=== PATIENT | male | born 1955 | race Caucasian/White ===

== ENCOUNTER 2017-01-13 09:29 | Emergency (ER) | payer MEDICARE ==
[2017-01-13 09:41] VITALS: BP 128/78
--- NOTE | 2017-01-13 09:48 | UC ---
Knee Pain HPI - HPI Summary HPI Summary: 61 YEAR OLD MALE PRESENTS WITH LEFT KNEE PAIN. - History of Current Complaint Chief Complaint: UCLowerExtremity Stated Complaint: LEFT KNEE PAIN Time Seen by Provider: 01/13/17 09:44 - Allergies/Home Medications Allergies/Adverse Reactions: Allergies Allergy/AdvReac Type Severity Reaction Status Date / Time Molds & Smuts Allergy Shortness Verified 01/13/17 09:37 of Breath dog hair Allergy Shortness Uncoded 01/13/17 09:37 of Breath Home Medications: Home Medications Aspirin EC Low Dose* [Ecotrin EC Low Dose 81 MG*] 81 mg PO DAILY 01/13/17 [ History Confirmed 01/13/17] PMH/Surg Hx/FS Hx/Imm Hx - Surgical History Surgical History: Yes Surgery Procedure, Year, and Place: Right Knee Medial Meniscus, 2006, [facility] [place] - Family History Known Family History: Negative: Respiratory Disease, Blood Disorder - Social History Alcohol Use: None Substance Use Type: None Smoking Status (MU): Never Smoked Tobacco Review of Systems Constitutional: Negative Skin: Negative Eyes: Negative ENT: Negative Respiratory: Negative Cardiovascular: Negative Gastrointestinal: Negative Genitourinary: Negative Motor: Negative Neurovascular: Negative Musculoskeletal: Other: - LEFT MEDIAL KNEE PAIN Neurological: Negative Psychological: Negative All Other Systems Reviewed And Are Negative: Yes Physical Exam Triage Information Reviewed: Yes Vital Signs: Initial Vital Signs Temp 36.8 C 01/13/17 09:33 Pulse 73 01/13/17 09:33 Resp 16 01/13/17 09:33 BP 128/78 01/13/17 09:33 Pulse Ox 97 01/13/17 09:33 Eye Exam: Normal ENT Exam: Normal Dental Exam: Normal Neck exam: Normal Neck: Positive: 1 Respiratory Exam: Normal Cardiovascular Exam: Normal Abdominal Exam: Normal Musculoskeletal: Positive: Strength Limited @, ROM Limited @, Other: - LEFT KNEE PAIN Neurological Exam: Normal Psychological Exam: Normal Skin Exam: Normal Knee Pain Course/Dx - Differential Dx/Diagnosis Provider Diagnoses: LEFT MEDIAL COMPARTMENT KNEE PAIN Discharge - Discharge Plan Condition: Stable Disposition: HOME Prescriptions: Methylprednisolone [Medrol Dosepak 4 MG*] 4 mg PO .SEE JAYSHREE INSTRUCTION #21 tab Patient Education Materials: Knee Pain (ED) Referrals: GADIEL Raymundo [Primary Care Provider] -
--- NOTE | 2017-01-13 10:24 | RAD ---
INDICATION: Chronic, atraumatic left knee pain COMPARISON: Left knee May 03, 2006 TECHNIQUE: AP, lateral, tunnel, and sunrise views were obtained. FINDINGS: There is moderate to advanced tricompartmental osteoarthritis with spurring about all 3 joint space compartments and moderate narrowing about the medial joint space compartment. There are findings of chondrocalcinosis. There is no significant joint effusion. IMPRESSION: MODERATE TO ADVANCED OSTEOARTHRITIS PROGRESSIVE FROM 2005
== END 2017-01-13 10:44 | disposition home or self-care (01) ==
LOC: UCCORT 09:29
DX: M25.562 Pain in left knee (principal); M17.12 Unilateral primary osteoarthritis, left knee; Z79.82 Long term (current) use of aspirin
CPT/HCPCS: 99212; G0463

== ENCOUNTER 2017-05-03 11:06 | Emergency (ER) | payer MEDICARE ==
[2017-05-03 11:20] VITALS: BP 132/95
--- NOTE | 2017-05-03 11:37 | UC ---
Back Pain HPI - HPI Summary HPI Summary: left flank pain x 1 week no known injury pain is at the left flank radiates to the left side of chest no cough , no sob , no fever or chills pain is worse with breathing or coughing - History of Current Complaint Chief Complaint: UCBackPain Stated Complaint: MIDDLE BACK/LEFT SIDE/LEFT SHOULDER PAIN Time Seen by Provider: 05/03/17 11:10 Hx Obtained From: Patient Onset/Duration: Gradual Onset, Lasting Weeks - 7, Still Present Timing: Constant Severity Initially: Moderate Severity Currently: Moderate Back Pain: Is Discrete @ - left flank Character: Aching Aggravating Factor(s): Movement, Other - cough , deep breathing Alleviating Factor(s): Rest Associated Signs And Symptoms: Positive: Flank Pain - left. Negative: Swelling , Redness, Bruising, Fever, Weakness, Numbness, Tingling, Abdominal Pain - Allergies/Home Medications Allergies/Adverse Reactions: Allergies Allergy/AdvReac Type Severity Reaction Status Date / Time Molds & Smuts Allergy Shortness Verified 01/13/17 09:37 of Breath dog hair Allergy Shortness Uncoded 01/13/17 09:37 of Breath PMH/Surg Hx/FS Hx/Imm Hx Respiratory History: Asthma - Surgical History Surgical History: Yes Surgery Procedure, Year, and Place: Right Knee Medial Meniscus, 2007, [facility]. L elbow - Family History Known Family History: Negative: Respiratory Disease, Blood Disorder - Social History Alcohol Use: None Substance Use Type: None Smoking Status (MU): Never Smoked Tobacco Review of Systems Constitutional: Negative Skin: Negative Eyes: Negative ENT: Negative Respiratory: Negative Is Patient Immunocompromised?: No All Other Systems Reviewed And Are Negative: Yes Physical Exam Triage Information Reviewed: Yes Appearance: Well-Appearing, No Pain Distress, Well-Nourished Vital Signs: Initial Vital Signs Temp 97.8 F 05/03/17 11:10 Pulse 76 05/03/17 11:10 Resp 16 05/03/17 11:10 BP 132/95 05/03/17 11:10 Pulse Ox 98 05/03/17 11:10 Vital Signs Reviewed: Yes Eyes: Positive: Conjunctiva Clear ENT: Positive: Normal ENT inspection, Hearing grossly normal, Pharynx normal Neck exam: Normal Neck: Positive: Supple, Nontender, No Lymphadenopathy Respiratory: Positive: Chest non-tender, Lungs clear, Normal breath sounds Cardiovascular: Positive: RRR, No Murmur, Pulses Normal Abdominal Exam: Normal Abdomen Description: Positive: Soft Bowel Sounds: Positive: Present Musculoskeletal: Positive: Other: - tenderness left mid ribs, Skin Exam: Normal Back Pain Course/Dx - Differential Dx/Diagnosis Provider Diagnoses: intercostal muscle strain Discharge - Discharge Plan Condition: Stable Disposition: HOME Prescriptions: Cyclobenzaprine TAB* [Flexeril 10 MG TAB*] 10 mg PO BID #20 tab Naproxen [Naproxen 500 mg] 500 mg PO BID #20 tab Patient Education Materials: Chest Wall Pain (ED) Referrals: GADIEL Raymundo [Primary Care Provider] - 7 Days
== END 2017-05-03 11:38 | disposition home or self-care (01) ==
LOC: UCCORT 11:06
DX: S29.011A Strain of muscle and tendon of front wall of thorax, initial encounter (principal); J30.89 Other allergic rhinitis; J30.81 Allergic rhinitis due to animal (cat) (dog) hair and dander; X58.XXXA Exposure to other specified factors, initial encounter
CPT/HCPCS: 99212; G0463

== ENCOUNTER 2018-04-05 16:11 | Emergency (ER) | payer MEDICARE ==
[2018-04-05 16:24] VITALS: BP 132/82
--- NOTE | 2018-04-05 17:20 | UC ---
Neck Pain HPI - HPI Summary HPI Summary: 2 day history of left arm pain at deltoid insertion, with hx of chronic neck pain and restriction following an old injury (heavy carton of books fell with resulting strain in neck when he caught them.) Has not done PT in some time, but he is very active, and has recently been renovating his house x months. No hand paresthesias or weakness. Used OTC aleve x 1 dose only, no ice, heat or stretching. - History of Current Complaint Chief Complaint: UCGeneralIllness Stated Complaint: LEFT NECK/ARM/LEG PAIN Time Seen by Provider: 04/05/18 17:07 Hx Obtained From: Patient Onset/Duration Of Injury/Symptoms: Days - 3 Onset/Duration: Gradual Onset, Lasting Days Severity: Moderate Pain Intensity: 4 Character: Dull, Aching Aggravating Factors: Position, Movement Alleviating Factors: Nothing - Risk Factors Meningitis Risk Factors: Negative - Allergies/Home Medications Allergies/Adverse Reactions: Allergies Allergy/AdvReac Type Severity Reaction Status Date / Time No Known Allergies Allergy Verified 04/05/18 16:16 PMH/Surg Hx/FS Hx/Imm Hx - Additional Past Medical History Additional PMH: chronic neck pain Previously Healthy: Yes - Surgical History Surgical History: Yes Surgery Procedure, Year, and Place: Right Knee Medial Meniscus, 2007, [facility]. L elbow - Family History Known Family History: Positive: Cardiac Disease - sister, Diabetes - father, Respiratory Disease, Blood Disorder - Social History Occupation: Employed Full-time Lives: With Family Alcohol Use: None Substance Use Type: None Smoking Status (MU): Never Smoked Tobacco - Immunization History Most Recent Tetanus Shot: utd Review Of Systems Constitutional: Positive: Negative Skin: Positive: Negative Musculoskeletal: Positive: Arthralgia, Myalgia All Other Systems Reviewed And Are Negative: Yes Physical Exam Triage Information Reviewed: Yes Appearance: Well-Appearing, Pain Distress - mild Vital Signs: Initial Vital Signs Temp 98.1 F 04/05/18 16:17 Pulse 79 04/05/18 16:17 Resp 16 04/05/18 16:17 BP 132/82 04/05/18 16:17 Pulse Ox 98 04/05/18 16:17 Eyes: Positive: Conjunctiva Clear ENT: Positive: Pharynx normal Neck exam: Other - tight paraspinal muscles with marked decrease rom of neck: FF to 20 degrees, extension to neutral, rotation to 30 degrees. Neck: Positive: No Lymphadenopathy Respiratory: Positive: Lungs clear, Normal breath sounds Cardiovascular: Positive: RRR, No Murmur Musculoskeletal Exam: Other - mild tenderness anterior shoulder, tenderness at insertion at deltoid. Musculoskeletal: Positive: Strength Intact, ROM Limited @ - mild restriction of left shoulder range. Good resisted strength--deltoid, biceps. Neurological: Positive: Alert, Muscle Tone Normal, Fatigued Psychological Exam: Normal, Other - bilateral triceps and biceps reflexes symmetrical and normal. Skin Exam: Normal Neck Pain Course/Dx - Course Course Of Treatment: cervicalgia, left deltoid strain. - Differential Dx/Diagnosis Differential Dx/HQI/PQRI: Arthritis, Sprain, Strain Provider Diagnoses: strain left deltoid; cervicalgia (chronic) Discharge - Sign-Out/Discharge Documenting (check all that apply): Patient Departure All imaging exams completed and their final reports reviewed: No Studies - Discharge Plan Condition: Stable Disposition: HOME Prescriptions: Naproxen [Naproxen 500 mg tab] 500 mg PO BID PRN #40 tablet PRN Reason: Pain Patient Education Materials: Cervical Strain (ED), Muscle Strain (ED) Referrals: No Primary Care Phys,NOPCP [Primary Care Provider] - Additional Instructions: Begin naproxen 500mg twice daily for pain, taking it for about a week. Ensure that you take it with food and stop if you develop nausea or stomach upset. You have a referral to physical therapy to work on exercises to relieve strain and improve neck movement. - Billing Disposition and Condition Condition: STABLE Disposition: Home
== END 2018-04-05 17:47 | disposition home or self-care (01) ==
LOC: UCCORT 16:11
DX: S46.912A Strain of unspecified muscle, fascia and tendon at shoulder and upper arm level, left arm, initial encounter (principal); X50.0XXA Overexertion from strenuous movement or load, initial encounter; Y93.89 Activity, other specified; Y92.009 Unspecified place in unspecified non-institutional (private) residence as the place of occurrence of the external cause; M54.2 Cervicalgia
CPT/HCPCS: 99212; G0463

== ENCOUNTER 2018-10-01 07:51 | Emergency (ER) | payer MEDICARE ==
[2018-10-01 08:14] VITALS: BP 125/93
--- NOTE | 2018-10-01 08:18 | UC ---
FLU HPI - HPI Summary HPI Summary: 63-year-old male presents with onset of fever, chills, malaise, body aches, nasal congestion, sore throat, and occasionally productive cough for days ago. Denies ear pain, dysphagia, chest pain, shortness of breath, abdominal pain, nausea, vomiting, or diarrhea. - History of Current Complaint Chief Complaint: UCRespiratory Stated Complaint: SORE THROAT, ACHES Hx Obtained From: Patient Pain Intensity: 3 - Allergy/Home Medications Allergies/Adverse Reactions: Allergies Allergy/AdvReac Type Severity Reaction Status Date / Time No Known Allergies Allergy Verified 10/01/18 08:11 Home Medications: Home Medications Dm/PE/Acetaminophen/Doxylamine [COLD & FLU MULTI-SYMPTOM (Liquid)] 1 mis PO BID PRN 10/01/18 [History Confirmed 10/01/18] PMH/Surg Hx/FS Hx/Imm Hx Previously Healthy: Yes - Denies significant PMH - Surgical History Surgical History: Yes Surgery Procedure, Year, and Place: Right Knee Medial Meniscus, 2006, [facility]. L elbow - Family History Known Family History: Positive: Cardiac Disease - sister, Diabetes - father, Respiratory Disease, Blood Disorder - Social History Occupation: Disabled Lives: With Family Alcohol Use: None Substance Use Type: None Smoking Status (MU): Never Smoked Tobacco - Immunization History Most Recent Tetanus Shot: utd Review of Systems All Other Systems Reviewed And Are Negative: Yes Constitutional: Positive: Fever, Chills Skin: Negative: Rash Eyes: Negative: Drainage, Eye Redness ENT: Positive: Sore Throat, Nasal Discharge, Sinus Congestion. Negative: Ear Ache, Sinus Pain/Tenderness Respiratory: Positive: Cough. Negative: Shortness Of Breath Cardiovascular: Negative: Palpitations, Chest Pain Gastrointestinal: Negative: Abdominal Pain, Vomiting, Diarrhea, Nausea Genitourinary: Positive: Negative Musculoskeletal: Positive: Myalgia Neurological: Positive: Negative Is Patient Immunocompromised?: No Physical Exam - Summary Physical Exam Summary: GENERAL APPEARANCE: Well developed, well nourished, alert and cooperative, and appears to be in no acute distress. EYES: Conjunctiva clear. No drainage. Vision is grossly intact. EARS: External auditory canals and tympanic membranes clear, hearing grossly intact. NOSE: Mild-moderate. nasal congestion. No nasal discharge. THROAT: Pharyngeal erythema with cobblestoning. No tonsilar inflammation, swelling, exudate, or lesions. Uvula midline. Oral cavity normal. Teeth and gingiva in good general condition. NECK: Neck supple, non-tender without lymphadenopathy. CARDIAC: Grade II systolic murmur. Rhythm is regular. There is no peripheral edema, cyanosis or pallor. Extremities are warm and well perfused. Capillary refill is less than 2 seconds. Peripheral pulses intact. LUNGS: Clear to auscultation without rales, rhonchi, wheezing or diminished breath sounds. Loose non-productive cough. ABDOMEN: Positive bowel sounds. Soft, nondistended, nontender. No guarding or rebound. No masses or hepatosplenomegally. MUSKULOSKELETAL: ROM intact to all extremities. No joint erythema or tenderness. Normal muscular development. Normal gait. SKIN: Skin normal color, texture and turgor with no lesions or eruptions. Triage Information Reviewed: Yes Vital Signs: Initial Vital Signs Temp 98.1 F 10/01/18 08:12 Pulse 93 10/01/18 08:12 Resp 16 10/01/18 08:12 BP 125/93 10/01/18 08:12 Pulse Ox 98 10/01/18 08:12 Vital Signs Reviewed: Yes Flu Course/Dx - Course Course Of Treatment: 63-year-old male presents with onset of fever, chills, malaise, body aches, nasal congestion, sore throat, and occasionally productive cough for days ago. Denies ear pain, dysphagia, chest pain, shortness of breath, abdominal pain, nausea, vomiting, or diarrhea. Afebrile. Vital signs stable. Exam remarkable for mild to moderate nasal congestion, pharyngeal erythema with cobblestoning, and a loose nonproductive cough. Patient's history and exam are consistent with influenza versus viral URI. Will recommend symptomatic treatment at this time. Patient is to follow-up with his primary care provider in 5-7 days if symptoms persist. Anticipatory guidance and warning symptoms were reviewed with the patient. Verbalizes understanding and agrees with plan of care. - Differential Dx/Diagnosis Differential Diagnosis/HQI/PQRI: Bronchitis, Influenza, Pneumonia, Upper Respiratory Infection Provider Diagnosis: Influenza Discharge - Sign-Out/Discharge Documenting (check all that apply): Patient Departure All imaging exams completed and their final reports reviewed: No Studies - Discharge Plan Condition: Stable Disposition: HOME Prescriptions: Benzonatate CAP* [Tessalon 100 MG CAP*] 100 mg PO TID PRN #30 cap PRN Reason: Cough Patient Education Materials: Influenza (ED) Referrals: GADIEL Raymundo [Primary Care Provider] - 5 Days (Follow up in 5-7 days if symptoms persist.) Additional Instructions: Your history and exam are consistent with influenza or other viral infection. Get plenty of rest. Drink plenty of fluids to avoid dehydration especially if you are running any fever. Take over the counter acetaminophen (Tylenol) or ibuprofen (Advil, Motrin) according to directions as needed for pain or fever. Take Tessalon Perles 1 cap every 8 hours as needed for cough. Use salt water gargles several times a day if you have a sore throat. You may also use Chloraseptic spray or Cepacol lonzenges according to directions which contain a numbing medication and can provide some temporary relief from your sore throat. Follow up with your primary care provider in 5-7 days if symptoms persist. Seek immediate medical attention in the emergency room if you have fever greater than 100.5 F despite taking acetaminophen or ibuprofen, have chest pain , difficulty breathing, are unable to swallow, or have any worsening of symptoms. - Billing Disposition and Condition Condition: STABLE Disposition: Home
== END 2018-10-01 08:30 | disposition home or self-care (01) ==
LOC: UCCORT 07:51
DX: J11.1 Influenza due to unidentified influenza virus with other respiratory manifestations (principal)
CPT/HCPCS: 99212; G0463

== ENCOUNTER 2018-11-04 15:46 | Emergency (ER) | payer MEDICARE ==
[2018-11-04 16:14] VITALS: BP 134/69
--- NOTE | 2018-11-04 16:32 | UC ---
Dizzy HPI HPI Summary: Pt presents with c/o sudden onset of lightheadedness while at the store just prior to arrival. Pt denies, ROSARIO, palpitations, cp one sided weakness or LOC. Pt states that he feels fine now but is concerned about "event" at store. He said he felt "confused", weak and slightly lightheaded. - History Of Current Complaint Stated Complaint: LIGHT-HEADEDNESS Time Seen by Provider: 11/04/18 15:59 Hx Obtained From: Patient Onset/Duration: Sudden Onset, Other - seconds Timing: Seconds Severity Initially: Mild Severity Currently: None Pain Intensity: 1 Character: Lightheaded, Unable To Describe - confused Aggravating Factor(s): Nothing Alleviating Factor(s): Other - resloved on own Associated Signs And Symptoms: Positive: Negative - Risk Factors Cardiac Risk Factors: Negative CVA Risk Factor: Negative - Allergies/Home Medications Allergies/Adverse Reactions: Allergies Allergy/AdvReac Type Severity Reaction Status Date / Time dog dander Allergy Unknown Shortness Verified 11/04/18 15:57 of Breath PMH/Surg Hx/FS Hx/Imm Hx Previously Healthy: Yes Cardiovascular History: Cardiac Disease, Other - murmur - Surgical History Surgical History: Yes Surgery Procedure, Year, and Place: Right Knee Medial Meniscus, 2006, [facility]. L elbow - Family History Known Family History: Positive: Cardiac Disease - sister, Diabetes - father, Respiratory Disease, Blood Disorder - Social History Occupation: Retired Alcohol Use: None Substance Use Type: None Smoking Status (MU): Never Smoked Tobacco Have You Smoked in the Last Year: No - Immunization History Most Recent Tetanus Shot: utd Vaccination Up to Date: No Review of Systems All Other Systems Reviewed And Are Negative: Yes Constitutional: Positive: Negative Skin: Positive: Negative Eyes: Positive: Negative ENT: Positive: Negative Respiratory: Positive: Negative Cardiovascular: Positive: Negative Gastrointestinal: Positive: Negative Genitourinary: Positive: Negative Motor: Positive: Negative Neurovascular: Positive: Negative Musculoskeletal: Positive: Negative Neurological: Positive: Negative Psychological: Positive: Negative Is Patient Immunocompromised?: No Physical Exam Triage Information Reviewed: Yes Appearance: Well-Appearing Vital Signs: Initial Vital Signs Temp 97.8 F 11/04/18 15:59 Pulse 78 11/04/18 15:59 Resp 18 11/04/18 15:59 BP 134/69 11/04/18 15:59 Pulse Ox 98 11/04/18 15:59 Vital Signs Reviewed: Yes Eye Exam: Normal ENT Exam: Normal Dental Exam: Normal Neck exam: Normal Respiratory Exam: Normal Cardiovascular: Positive: Murmur:Sys:Grade _?_/ Musculoskeletal Exam: Normal Neurological Exam: Normal Neurological: Positive: Alert, Muscle Tone Normal Psychological Exam: Normal Psychological: Positive: Normal Response To Family Skin Exam: Normal Dizzy Course/Dx - Differential Dx/Diagnosis Differential Diagnosis/HQI/PQRI: Transient Ischemic Attack, Vasovagal Reaction Provider Diagnosis: Light-headed feeling Discharge - Sign-Out/Discharge Documenting (check all that apply): Patient Departure All imaging exams completed and their final reports reviewed: No Studies - Discharge Plan Condition: Stable Disposition: HOME Patient Education Materials: Meal Planning with Diabetes Exchanges (DC), Lightheadedness (ED), Dizziness (ED) Referrals: GADIEL Raymundo [Primary Care Provider] - As Soon As Possible Additional Instructions: Please follow up with your PCP as soon as possible. - Billing Disposition and Condition Condition: STABLE Disposition: Home
== END 2018-11-04 16:45 | disposition home or self-care (01) ==
LOC: UCCORT 15:46
DX: R42 Dizziness and giddiness (principal); R01.1 Cardiac murmur, unspecified
CPT/HCPCS: 93005; 99211; G0463

== ENCOUNTER 2018-12-10 18:04 | Emergency (ER) | payer MEDICARE ==
--- OUTSIDE RECORDS SUMMARY | 2018-12-10 18:16 | XMS REPORT | Continuity of Care Document ---
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 Onset: 09/18/2013 Family history of malignant neoplasm German Ruff M.D. 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 Independent with all ADL's Tobacco Use Start: Unknown Never Smoked Cigarettes ETOH Use Denies alcohol use Tobacco Use Start: Unknown Patient has never smoked Smoking Status Reviewed: 11/28/18 Patient has never smoked Allergies, Adverse Reactions, Alerts Description No Known Drug Allergies Medications Active Medications SIG Qnty Indications Ordering Provider Date Montelukast Sodium 1 po daily Unknown 10mg Tablets Kelly Aspirin Ec Low Dose 1 po qd Unknown 81mg Tablets DR History Medications Aspirin 81 Unknown - Unknown 81mg Tablets DR Omeprazole 1 po qd 30caps Unknown - Unknown 20mg Capsules DR Cyclobenzaprine HCL 1/2-1 po tid prn 30tabs Unknown - Unknown 10mg Tablets spasms Ibuprofen prn 50tabs Unknown - Unknown 200mg Tablets Vital Signs Date Vital Result Comment 11/28/2018 7:48am BP Systolic Sitting Left Arm 120 mmHg BP Diastolic Sitting Left Arm 82 mmHg Heart Rate 72 /min Respiratory Rate 16 /min Height 67 inches 5'7" Weight 181.00 lb BMI (Body Mass Index) 28.3 kg/m2 BSA (Body Surface Area) 1.94 m2 Hillman body weight in kilograms 67 kg O2 Saturation Level with Exercise 96 % 09/18/2013 8:49am BP Systolic Sitting Right Arm 117 mmHg BP Diastolic Sitting Right Arm 70 mmHg Heart Rate 69 /min Respiratory Rate 20 /min Height 67 inches 5'7" Weight 188.00 lb BMI (Body Mass Index) 29.4 kg/m2 BSA (Body Surface Area) 1.97 m2 Procedures Date Code Description Status 11/28/2018 23780 EKG-Tracing And Report Completed 11/19/2018 72390 Echocardiogram Complete Completed 08/29/2016 23845 Bronchospasm Provocation Evaluation Multi Spirometric Completed Determinati 08/29/2016 72577 Spirometry Completed 12/10/2013 95476 Colonoscopy Completed 07/03/2013 647810925 Bone Mineral Density Test Completed 03/21/2013 92206 ECHO Transthoracic Inc Performance Continuous Completed Electrocardio 09/16/2010 86948 Echocardiogram Complete Completed Encounters Type Date Location Provider Dx Diagnosis Office Visit 11/28/2018 Cardiology Office Ferny Harris R42 Dizziness and 7:40a Cindy Triplett, [facility] giddiness R06.02 Shortness of breath I34.0 Nonrheumatic mitral (valve) insufficiency Office Visit 09/18/2013 8:30a Surgical Speedy, 787.20 Dysphagia, Office German Coffman, Unspecified Cindy V16.0 History Family Malignant Neoplasm Gastrointestinal Tract Plan of Treatment Future Appointment(s):01/07/2019 10:20 am - Shellie Manzano, MSN, [facility] at Cardiology [id number]/28/2018 - Ferny Harris M.D., [id number] Dizziness and giddinessComments:He is dismissing his dizzy spells but I told him they may represent either sudden drop in the BP or in the HR. We will monitor him if there is recurrence of the symptom.R06.02 Shortness of breathComments:He attributes this to his allergy but he cannot tell me if something similar happened during the winter. He seems to be sure that he tolerates hard working like he always did. 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 His LV size is mildly enlarged and the EF mildly depressed. Yet, these two conditions make him a candidate for repair of the mitral valve even without symptoms. I would like to do a IRENE to determine more accurately the mechanism of the MR and the degree of leak. I will return after the study and we will discuss how to proceed. He seems to be very determined to go for MVr if I recommend it.AllFollow up:After study is completed.
--- OUTSIDE RECORDS SUMMARY | 2018-12-10 18:16 | XMS REPORT | Continuity of Care Document ---
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 Onset: 09/18/2013 Family history of malignant neoplasm German Ruff M.D. 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 Tobacco Use Start: Unknown Never Smoked Cigarettes ETOH Use Denies alcohol use Tobacco Use Start: Unknown Patient has never smoked Allergies, Adverse Reactions, Alerts Description No Known Drug Allergies Medications Active Medications SIG Qnty Indications Ordering Provider Date Montelukast Sodium Unknown 10mg Tablets Kelly Aspirin Ec Low Dose 1 po qd Unknown 81mg Tablets DR History Medications Aspirin 81 Unknown - Unknown 81mg Tablets DR Omeprazole 1 po qd 30caps Unknown - Unknown 20mg Capsules DR Cyclobenzaprine HCL 1/2-1 po tid prn 30tabs Unknown - Unknown 10mg Tablets spasms Ibuprofen prn 50tabs Unknown - Unknown 200mg Tablets Vital Signs Date Vital Result Comment 09/18/2013 8:49am BP Systolic Sitting Right Arm 117 mmHg BP Diastolic Sitting Right Arm 70 mmHg Heart Rate 69 /min Respiratory Rate 20 /min Height 67 inches 5'7" Weight 188.00 lb BMI (Body Mass Index) 29.4 kg/m2 BSA (Body Surface Area) 1.97 m2 Procedures Date Code Description Status 11/19/2018 04570 Echocardiogram Complete Completed 08/29/2016 00854 Bronchospasm Provocation Evaluation Multi Spirometric Completed Determinati 08/29/2016 76109 Spirometry Completed 12/10/2013 07292 Colonoscopy Completed 07/03/2013 151075388 Bone Mineral Density Test Completed 03/21/2013 04189 ECHO Transthoracic Inc Performance Continuous Completed Electrocardio 09/16/2010 44605 Echocardiogram Complete Completed Encounters Type Date Location Provider Dx Diagnosis Office Visit 09/18/2013 Surgical Office [facility] [phone] Dysphagia, 8:30a Criss Cervantes M.D. V16.0 History Family Malignant Neoplasm Gastrointestinal Tract Plan of Treatment 09/18/2013 - German Ruff M.D.787.20 Dysphagia, UnspecifiedComments:Evaluate dysphagia that he reports with contrast swallow. Questions addressed.V16.0 History Family Malignant Neoplasm Gastrointestinal TractComments:Will arrange colonoscopy. Risks, benefits and alternatives were reviewed. Questions addressed.Recommendations:Expect a call as to the date and time arranged. Please call if you have question or concerns about the preparation for the procedure, or simply about this procedure.
[2018-12-10 18:50] VITALS: BP 123/72
--- NOTE | 2018-12-10 19:21 | UC ---
Lower Extremity/Ankle HPI - HPI Summary HPI Summary: 63-year-old male comes in with a chief complaint of left leg pain. Started about a week ago. Pain is in his left buttock goes down the back of the left thigh into the back and left knee and sometimes onto the left calf. Pain is worse with movement of the leg and palpation of the area. No weakness or numbness. No back pain. He has been working more outside. He has not taken any medications for the pain. - History of Current Complaint Chief Complaint: UCLowerExtremity Stated Complaint: LT LEG PAIN Time Seen by Provider: 12/10/18 19:08 Pain Intensity: 7 - Allergies/Home Medications Allergies/Adverse Reactions: Allergies Allergy/AdvReac Type Severity Reaction Status Date / Time dog dander Allergy Unknown Shortness Verified 12/10/18 18:51 of Breath PMH/Surg Hx/FS Hx/Imm Hx Previously Healthy: Yes - Surgical History Surgical History: Yes Surgery Procedure, Year, and Place: Right Knee Medial Meniscus, 2006, [facility]. L elbow - Family History Known Family History: Positive: Cardiac Disease - sister, Diabetes - father, Respiratory Disease, Blood Disorder - Social History Alcohol Use: None Substance Use Type: None Smoking Status (MU): Never Smoked Tobacco Have You Smoked in the Last Year: No - Immunization History Most Recent Tetanus Shot: utd Vaccination Up to Date: No Review of Systems All Other Systems Reviewed And Are Negative: Yes Constitutional: Positive: Negative Skin: Positive: Negative Eyes: Positive: Negative ENT: Positive: Negative Respiratory: Positive: Negative Cardiovascular: Positive: Negative Gastrointestinal: Positive: Negative Genitourinary: Positive: Negative Motor: Positive: Negative Neurovascular: Positive: Negative Musculoskeletal: Positive: Other: - SEE HPI Neurological: Positive: Negative Psychological: Positive: Negative Is Patient Immunocompromised?: No Physical Exam Triage Information Reviewed: Yes Appearance: Well-Appearing, No Pain Distress, Well-Nourished Vital Signs: Initial Vital Signs Temp 98.2 F 12/10/18 18:47 Pulse 74 12/10/18 18:47 Resp 16 12/10/18 18:47 BP 123/72 12/10/18 18:47 Pulse Ox 97 12/10/18 18:47 Vital Signs Reviewed: Yes Eye Exam: Normal Eyes: Positive: Conjunctiva Clear Neck: Positive: Supple Respiratory: Positive: No respiratory distress Musculoskeletal: Positive: Other: - Patient is tender along the left sciatic distribution through the left buttock down the left calf. Does have mild tenderness back in the knee. The knee exam otherwise is normal. Calf is nontender to palpation is not swollen. Normal sensation and strength both legs. Patient does get worse pain with left hip flexion. Both legs have full range of motion. Neurological Exam: Normal Neurological: Positive: Alert, Muscle Tone Normal Psychological Exam: Normal Psychological: Positive: Age Appropriate Behavior Skin Exam: Normal Lower Extremity Course/Dx - Course Course Of Treatment: The plan is to ice the area see if that helps he can also take ibuprofen 600 mg 3 times a day. Will follow-up with sports medicine. Get reevaluated sooner if worse or any questions or concerns. - Differential Dx/Diagnosis Provider Diagnosis: Left sided sciatica Discharge - Sign-Out/Discharge Documenting (check all that apply): Patient Departure All imaging exams completed and their final reports reviewed: No Studies - Discharge Plan Condition: Stable Disposition: HOME Patient Education Materials: Sciatica (ED) Referrals: Thi Javier PA [Primary Care Provider] - [facility] [Provider Group] Additional Instructions: FOLLOW UP WITH SPORTS MEDICINE. TAKE IBUPROFEN 600MG THREE TIMES A DAY NEEDED. ICE THE AREA IF HELPFUL. GET RECHECKED SOONER IF YOUR CONDITION WORSENS; PAIN, WEAKNESS, NUMBNESS, CALF SWELLING/PAIN OR ANY QUESTIONS OR CONCERNS. - Billing Disposition and Condition Condition: STABLE Disposition: Home
== END 2018-12-10 19:32 | disposition home or self-care (01) ==
LOC: UCCORT 18:04
DX: M54.32 Sciatica, left side (principal)
CPT/HCPCS: 99211; G0463

== ENCOUNTER 2019-08-28 15:33 | Emergency (ER) | payer MEDICARE ==
[2019-08-28 16:34] VITALS: BP 152/96
--- NOTE | 2019-08-28 17:00 | UC ---
UC General HPI - HPI Summary HPI Summary: 64-year-old male comes in with a chief complaint of lightheaded episodes. Started about 4-5 days ago. An onset of feeling lightheaded and have some confusion and difficulty finding his words. When he has these episodes he feels a tightness in his throat. Denies any chest pain. Recently has been more short of breath than usual. Patient had mitral valve surgery in December 2018. His initiating symptoms for that surgery were shortness of breath. Patient has not felt any palpitations or racing heart. - History of Current Complaint Chief Complaint: UCGeneralIllness Stated Complaint: DIZZINESS,LIGHT HEADED Time Seen by Provider: 08/28/19 16:55 Pain Intensity: 0 - Allergy/Home Medications Allergies/Adverse Reactions: Allergies Allergy/AdvReac Type Severity Reaction Status Date / Time dog dander Allergy Unknown Shortness Verified 08/28/19 16:34 of Breath Home Medications: Home Medications Montelukast Sodium TAB* [Singulair 10 MG TAB*] 10 mg PO DAILY 11/08/14 [History Confirmed 08/28/19] Aspirin EC TAB* [Ecotrin EC Low Dose 81 MG*] 81 mg PO DAILY 01/13/17 [History Confirmed 08/28/19] PMH/Surg Hx/FS Hx/Imm Hx Previously Healthy: Yes Cardiovascular History: Cardiac Disease, Other - see hpi - Surgical History Surgical History: Yes Surgery Procedure, Year, and Place: Right Knee Medial Meniscus, 2006, [facility]. L elbow - Family History Known Family History: Positive: Cardiac Disease - sister, Diabetes - father, Respiratory Disease, Blood Disorder - Social History Alcohol Use: None Substance Use Type: None Smoking Status (MU): Never Smoked Tobacco Have You Smoked in the Last Year: No - Immunization History Most Recent Tetanus Shot: utd Vaccination Up to Date: No Review of Systems All Other Systems Reviewed And Are Negative: Yes Constitutional: Positive: Other - see hpi Skin: Positive: Negative Eyes: Positive: Negative ENT: Positive: Negative Respiratory: Positive: Shortness Of Breath, Other - see hpi Cardiovascular: Positive: Other - see hpi Gastrointestinal: Positive: Negative Motor: Positive: Negative Neurovascular: Positive: Negative Musculoskeletal: Positive: Negative Neurological/Mental Status: Positive: Negative Psychological: Positive: Negative Is Patient Immunocompromised?: No Physical Exam Triage Information Reviewed: Yes Appearance: Well-Appearing, No Pain Distress, Well-Nourished Vital Signs: Initial Vital Signs Temp 98.8 F 08/28/19 16:29 Pulse 93 08/28/19 16:29 Resp 16 08/28/19 16:29 BP 152/96 08/28/19 16:29 Pulse Ox 99 08/28/19 16:29 Vital Signs Reviewed: Yes Eye Exam: Normal Eyes: Positive: Conjunctiva Clear ENT: Positive: Pharynx normal Neck: Positive: Supple Respiratory: Positive: Lungs clear, Normal breath sounds, No respiratory distress Cardiovascular: Positive: RRR Musculoskeletal: Positive: Strength Intact, ROM Intact, No Edema - no calf tenderness Neurological: Positive: Alert, Muscle Tone Normal Psychological: Positive: Age Appropriate Behavior Skin Exam: Normal Diagnostics - EKG Cardiac Rate: NL - at 1636 Cardiac Rhythm: Sinus: Normal - 93bpm Ectopy: None ST Segment: Normal - Prolonged QTc 522 Course/Dx - Course Course Of Treatment: I discussed the EKG with the patient and his son. Because of his symptoms could be explained from a cardiac cause a recommended further evaluation in the emergency department. Patient preferred to go by POV. - Diagnoses Provider Diagnosis: Lightheadedness Discharge ED - Sign-Out/Discharge Documenting (check all that apply): Patient Departure All imaging exams completed and their final reports reviewed: No Studies - Discharge Plan Condition: Stable Disposition: HOME-RECOMMEND TO ED Patient Education Materials: Lightheadedness (ED) Referrals: Thi Javier PA [Primary Care Provider] - Additional Instructions: GO DIRECTLY TO THE EMERGENCY DEPARTMENT FOR FURTHER EVALUATION AND CARE. - Billing Disposition and Condition Condition: STABLE Disposition: Home-Recommend to ED
== END 2019-08-28 17:06 | disposition home health service (06) ==
LOC: UCCORT 15:33
DX: R42 Dizziness and giddiness (principal); R06.02 Shortness of breath; Z79.82 Long term (current) use of aspirin; Z91.09 Other allergy status, other than to drugs and biological substances
CPT/HCPCS: 93005; 99212; G0463